=== PATIENT | male | born 1985 | race Caucasian/White ===

== ENCOUNTER 2022-10-10 13:06 | Emergency (ER) | payer BC, SELFPAY ==
[2022-10-10] VITALS (8 sets, daily range): BP systolic 134–187; BP diastolic 75–95; PULSE 85–105; RESP 12–16; TEMP 36.7; O2SAT 94–98; BMI 39.9
--- NOTE | 2022-10-10 13:26 | CRLHL7_ITS ---
For Patients: As a result of the Cures Act, medical imaging exams and procedure reports are released immediately into your electronic medical record. You may view this report before your referring provider. If you have questions, please contact your health care provider. INDICATION: Chest pain. TECHNIQUE: Chest 2 views. COMPARISON: None. FINDINGS: Cardiovascular and mediastinum: Cardiomediastinal silhouette is within normal limits Lungs and pleural spaces: Lungs are clear. No sign of pleural effusion. No pneumothorax. Bones and soft tissues: No significant findings. IMPRESSION: No acute or significant findings. Dictated by Ross Anthony MD @ 10/10/2022 2:53:07 PM (Electronically Signed)
[2022-10-10 13:48] LABS: Basophils Absolute Auto 0.06 K/uL (0.00-0.30); Basophils Percent Auto 1.1 % (0.0-3.0); Eosinophils Absolute Auto 0.13 K/uL (0.00-0.50); Eosinophils Percent Auto 2.3 % (0.0-7.0); Hematocrit 43.8 % (37.0-53.0); Hemoglobin* 14.8 gm/dL (13.5-17.5); Immature Granulocytes Abs Auto 0.01 K/uL (0.00-0.30); Immature Granulocytes Pct Auto 0.2 %; Lymphocytes Absolute Auto 1.36 K/uL (0.90-2.90); Mean Corpuscular HGB Conc 34 gm/dL (32-36); Mean Corpuscular Hemoglobin 30 pg (26-34); Mean Corpuscular Volume 90 fL (80-100); Monocytes Percent Auto 9.5 % (0.0-11.0); Neutrophils Absolute Auto 3.57 K/uL (1.7-7.0); Neutrophils Percent Auto 62.9 % (42.0-72.0); Platelet Count* 225 K/uL (140-440); RDW Coefficient of Variation % 12.4 % (11.5-15.5); Red Blood Count 4.87 m/uL (4.30-5.90); White Blood Count* 5.67 K/uL (4.50-11.00)
[2022-10-10] MEDS: KETOROLAC 15 MG/ML inj IVP (13:57)
[2022-10-10 14:00] LABS: Chloride* 97 mmol/L (96-114); Sodium* 131 mmol/L (135-149)
[2022-10-10 14:01] LABS: Potassium* 3.6 mmol/L (3.6-5.1)
--- NOTE | 2022-10-10 14:02 | ED_ITS ---
HPI - Chest Pain General Time Seen by Provider: 13:50 Date Seen: 10/10/22 Chief Complaint: Chest Pain Stated Complaint: chest pain Time Seen by Provider: 10/10/22 13:07 Source: patient Mode of arrival: ambulatory Limitations: no limitations History of Present Illness HPI narrative: Patient is a 37-year-old male with a history of coarctation of the aorta surgery treated while he was a child presents to emergency department for left upper chest pain. He states the pain started abruptly this morning it has been consistent ever since. States he had similar pain 2 days ago that resolved on its own. He was concerned due to his history since the pain came back. Does admit to recent heavy lifting 2 days ago prior to the pain initially starting. Denies fevers, chills, headache, lightheadedness, shortness of breath, abdominal pain, diarrhea, constipation, weakness, numbness. Patient denies having pain like this prior to the past 2 episodes of the past couple days. Pain does not radiate anywhere. States is sharp in nature. He also has a history of hypertension and states he took his hypertensive medication shortly prior to arrival. Patient also states he took 2 ibuprofen with minimal improvement in his symptoms. Related Data Home Medications Medication Instructions Recorded Confirmed amlodipine 10 mg tablet 10 mg PO DAILY 10/10/22 10/10/22 hydrochlorothiazide 12.5 mg capsule 12.5 mg PO DAILY 10/10/22 10/10/22 lisinopril 40 mg tablet 40 mg PO DAILY 10/10/22 10/10/22 loratadine 10 mg tablet (Claritin) 10 mg PO DAILY 10/10/22 10/10/22 Allergies Allergy/AdvReac Type Severity Reaction Status Date / Time No Known Drug Allergies Allergy Verified 10/10/22 13:10 Review of Systems Status of ROS Reports: 10 or more systems reviewed and unremarkable except as noted in History and below PFSH PFS Social History Smoking Status: Former smoker How often do you have a drink containing alcohol: 4 or more times a week AUDIT-C Alcohol total score: 4 Non-prescribed substance use: former substance user Exam Narrative Exam Narrative: Const: Well-nourished, Well-developed, in mild distress Eyes: PERRL, no conjunctival injection, and symmetrical lids ENMT: Atraumatic external nose and ears. Moist mucous membranes. Neck: Symmetric, trachea midline, No thyromegaly. CVS: RRR, No murmurs or gallops. Peripheral pulses 2+ and equal in all extremities RESP: Unlabored respiratory effort. Clear to auscultation bilaterally. GI: Nontender/Nondistended, No rebound or guarding. MSK:Extremities w/o deformity, Normal Active ROM, tenderness to palpation noted to the left upper chest where his pain is Skin: Warm, Dry. No rashes or lesions. Neuro: Normal Muscle tone, No focal neurological deficits. Psych: Awake, Alert, & Oriented x3. Appropriate mood and affect. Const Vital Signs, click to edit/add: Vital Signs - 24 hr 10/10/22 13:09 10/10/22 13:32 10/10/22 14:02 Temperature 98.1 F Pulse Rate 99 99 Pulse Rate [Pulse Oximeter] 105 H Respiratory Rate 16 16 12 Blood Pressure 173/84 H 162/95 H Blood Pressure [Left Upper Arm] 187/95 H Pulse Oximetry 98 96 97 Oxygen Delivery Method Room Air 10/10/22 14:32 10/10/22 15:01 10/10/22 15:32 Temperature Pulse Rate 97 86 96 Pulse Rate [Pulse Oximeter] Respiratory Rate 12 12 12 Blood Pressure 152/81 H 160/77 H 155/90 H Blood Pressure [Left Upper Arm] Pulse Oximetry 95 94 96 Oxygen Delivery Method 10/10/22 16:01 10/10/22 16:31 Temperature Pulse Rate 87 85 Pulse Rate [Pulse Oximeter] Respiratory Rate 12 12 Blood Pressure 134/75 138/84 Blood Pressure [Left Upper Arm] Pulse Oximetry 95 96 Oxygen Delivery Method Room Air Course Vital Signs Vital signs: Initial Vital Signs Temperature 98.1 F 10/10/22 13:09 Temperature Source Temporal Artery Scan 10/10/22 13:09 Pulse Rate 105 H 10/10/22 13:09 Pulse Rhythm Regular 10/10/22 13:09 Respiratory Rate 16 10/10/22 13:09 Blood Pressure 187/95 H 10/10/22 13:09 Blood Pressure Mean 125 H 10/10/22 13:09 Blood Pressure Position Supine 10/10/22 13:09 Pulse Oximetry 98 10/10/22 13:09 Oxygen Delivery Method Room Air 10/10/22 13:09 Vital Signs Temperature 98.1 F 10/10/22 13:09 Pulse Rate 105 H 10/10/22 13:09 Respiratory Rate 16 10/10/22 13:09 Blood Pressure 187/95 H 10/10/22 13:09 Pulse Oximetry 98 10/10/22 13:09 Oxygen Delivery Method Room Air 10/10/22 13:09 Temperature 98.1 F 10/10/22 13:09 Pulse Rate 85 10/10/22 16:31 Respiratory Rate 12 10/10/22 16:31 Blood Pressure 138/84 10/10/22 16:31 Pulse Oximetry 96 10/10/22 16:31 Oxygen Delivery Method Room Air 10/10/22 16:31 MDM - Chest Pain MDM Narrative Medical decision making narrative: Patient is a 37-year-old male presented emergency department for chest pain. Pain 1st occurred 2 days ago when when sounding came back again today. It is sharp in nature appears his left upper chest region. Denies ever having pain like this before. Does have history of hypertension and coarctation of the aorta which was surgically repaired as a child. His chest pain is reproducible on palpation with his history of cardiac workup will be ordered. Is includes troponin, CBC, BMP, EKG, chest x-ray. Lab work returns showing no concerning abnormalities. Sodium was slightly low at 131 but this is nothing he needs to be admitted for. Initial troponin was within normal limits. EKG showed him slightly tachycardic at 01:06 but otherwise no concerning abnormalities. Chest x-ray shows no concerning abnormalities. I see no signs of pneumothorax and not believe it is a pulmonary embolism. Most likely it is costochondritis considering the tenderness to palpation. Patient will be discharged home with Tylenol ibuprofen. He is agreeable to this plan. Differential Diagnosis Differential diagnosis: Likely pneumothorax, stable angina, unstable angina pectoris, st elevation myocardial infarction and costochondritis Lab Data Labs: Lab Results 10/10/22 10/10/22 Range/Units 13:36 15:53 WBC 5.67 (4.50-11.00) K/uL RBC 4.87 (4.30-5.90) m/uL Hgb 14.8 (13.5-17.5) gm/dL Hct 43.8 (37.0-53.0) % MCV 90 (80-100) fL MCH 30 (26-34) pg MCHC 34 (32-36) gm/dL RDW Coeff of Fortunato 12.4 (11.5-15.5) % Plt Count 225 (140-440) K/uL Neut % (Auto) 62.9 (42.0-72.0) % Lymph % (Auto) 24.0 (20-44) % Villalba % (Auto) 9.5 (0.0-11.0) % Eos % (Auto) 2.3 (0.0-7.0) % Baso % (Auto) 1.1 (0.0-3.0) % Neut # (Auto) 3.57 (1.7-7.0) K/uL Lymph # (Auto) 1.36 (0.90-2.90) K/uL Villalba # (Auto) 0.50 (0.00-0.90) K/UL Eos # (Auto) 0.13 (0.00-0.50) K/uL Baso # (Auto) 0.06 (0.00-0.30) K/uL Abs Immat Gran (auto) 0.01 (0.00-0.30) K/uL Imm/Tot Granulo (auto) 0.2 % Sodium 131 L (135-149) mmol/L Potassium 3.6 (3.6-5.1) mmol/L Chloride 97 (96-114) mmol/L Carbon Dioxide 27 (20-32) mmol/L BUN 13 (5-24) mg/dL Creatinine 0.7 (0.5-1.5) mg/dL Estimated Creat Clear 145.89 Estimated GFR 122 ml/min Glucose 153 H (60-115) mg/dL Calcium 8.5 (8.4-10.6) mg/dL Troponin I < 0.01 L < 0.01 L (0.01-0.04) ng/mL Discharge Plan Discharge Clinical Impression: Costalchondritis Patient Disposition: Home, Self-Care Condition: Stable Instructions: Costochondritis (ED) Additional Instructions: Your lab work looks well. Follow-up primary care provider. Return for new or worsening symptoms. The most likely of costochondritis which is typically from inflammation. NSAIDs such as ibuprofen will help with this. Her sodium level was slightly low today. The level it is now is not in overt concerned but if you see your primary care provider I would mention it to them. Prescriptions: No Action loratadine [Claritin] 10 mg tablet 10 mg PO DAILY amlodipine 10 mg tablet 10 mg PO DAILY hydrochlorothiazide 12.5 mg capsule 12.5 mg PO DAILY lisinopril 40 mg tablet 40 mg PO DAILY Follow Up/Referrals: Provider,Not a Local [Primary Care Provider] - Stand Alone Forms: [facility] [facility] Info Instructions
[2022-10-10 14:03] LABS: Creatinine* 0.7 mg/dL (0.5-1.5); Est. Creatinine Clearance* 145.89; Estimated Glomerular Filt Rate 122 ml/min
[2022-10-10 14:04] LABS: Blood Urea Nitrogen* 13 mg/dL (5-24); Calcium* 8.5 mg/dL (8.4-10.6); Carbon Dioxide* 27 mmol/L (20-32); Glucose* 153 mg/dL (60-115)
[2022-10-10 14:06] LABS: Slide Review Reflex No
[2022-10-10 14:18] LABS: Troponin I* < 0.01 ng/mL (0.01-0.04)
[2022-10-10 16:55] LABS: Troponin I* < 0.01 ng/mL (0.01-0.04)
== END 2022-10-10 17:11 | disposition home or self-care (01) ==
PROVIDERS: Emergency Provider Student in an Organized Health Care Education/Training Program
DX: M94.0 Chondrocostal junction syndrome [Tietze] (principal)
CPT/HCPCS: 36415; 71046; 80048; 84484; 85025; 93005; 96374; 99283; 99284; 99285; J1885

== ENCOUNTER 2023-04-10 21:23 | Emergency (ER) | payer BC, SELFPAY ==
[2023-04-10 21:40] VITALS: BP 143/91; PULSE 97; RESP 18; TEMP 37.1; O2SAT 97; BMI 37.4
--- NOTE | 2023-04-10 21:59 | ED_ITS ---
HPI - General Adult General Chief complaint: Chest Pain Stated complaint: Chest pain, dizziness, tingly feet Time Seen by Provider: 04/10/23 21:33 Source: patient and family Mode of arrival: ambulatory Limitations: no limitations History of Present Illness HPI narrative: 37-year-old male presenting today with chest pain. Pain is located in left side of the chest in comes and goes. Putting his arm over his head makes it better, walking makes it better. Nothing specific seems to make it worse. He does not feel short of breath. He denies fevers or chills. He denies any recent traveling. He states that the pain can radiate down his arm as well. Patient tells me that this pain has been present since the last time he was worked up for chest pain in our ER which was in October of last year. He states that the pain never went away and it keeps coming back. He tells me that he had a friend, who was over 20 years older than he is, recently have a heart attack and he feels like he might be having a heart attack because his symptoms match what his friend described. Patient denies any new medications, denies any recent travel. Denies any recent surgeries. Patient was a smoker, quit about 4 years ago. He does drink a significant amount of alcohol on a daily basis. He does have hypertension and is taking his medications as prescribed. Family history significant for a maternal grandfather who had an NM when he was 63. Related Data Home Medications Medication Instructions Recorded Confirmed amlodipine 10 mg tablet 10 mg PO DAILY 10/10/22 10/10/22 hydrochlorothiazide 12.5 mg capsule 12.5 mg PO DAILY 10/10/22 10/10/22 lisinopril 40 mg tablet 40 mg PO DAILY 10/10/22 10/10/22 loratadine 10 mg tablet (Claritin) 10 mg PO DAILY 10/10/22 10/10/22 Allergies Allergy/AdvReac Type Severity Reaction Status Date / Time No Known Drug Allergies Allergy Verified 10/10/22 13:10 Review of Systems Status of ROS: Reports: 10 or more systems reviewed and unremarkable except as noted in History and below [facility] Social History Smoking Status: Former smoker How often do you have a drink containing alcohol: 4 or more times a week AUDIT-C Alcohol total score: 4 Non-prescribed substance use: former substance user Exam Narrative: Exam Narrative: Overweight, well-developed patient in no acute distress, obviously acutely intoxicated. Smells of alcohol. Answers questions appropriately, is cooperative. Mood and affect are appropriate. Thoughts are goal oriented and rational. Patient speaks in full sentences without needing to catch his breath. HEENT: Normocephalic atraumatic. Pupils are equally round reactive to light. Extraocular muscles are intact. Conjunctivae are moist without any icterus noted. Moist mucous membranes. Cardiovascular: Heart is regular rate and rhythm S1 and S2 are present without any murmurs. Lungs: Clear to auscultation bilaterally no wheezes rhonchi or rales are appreciated. Patient takes deep breaths without any discomfort. I can reproduce his chest pain with firm palpation of the left chest wall just medial to the axillary region. There are no overlying skin changes. Abdomen: Soft, protuberant, nontender and nondistended. Normal bowel sounds. Extremities: Bilateral lower extremities are without edema. Skin: Well perfused without any obvious rashes. Const: Vital Signs, click to edit/add: Vital Signs - 24 hr 04/10/23 21:40 Temperature 98.8 F Pulse Rate [Pulse Oximeter] 97 Respiratory Rate 18 Blood Pressure [Ri ght Upper Arm] 143/91 H Pulse Oximetry 97 Oxygen Delivery Me thod Room Air Course Course ED Course: EKG, read by me, shows normal sinus rhythm with a pulse of 93. Troponin is 0. Given that the patient has had this pain now for over 6 months, pain is better with his arm over his head and pain radiates also down his left arm, I am concerned that he has a pinched cervical nerve. We discussed NSAIDs, heat, physical therapy. Patient was status care with a primary care provider. Vital Signs Vital signs: Initial Vital Signs Temperature 98.8 F 04/10/23 21:40 Temperature Source Temporal Artery Scan 04/10/23 21:40 Pulse Rate 97 04/10/23 21:40 Respiratory Rate 18 04/10/23 21:40 Blood Pressure 143/91 H 04/10/23 21:40 Blood Pressure Mean 108 H 04/10/23 21:40 Blood Pressure Position Sitting 04/10/23 21:40 Pulse Oximetry 97 04/10/23 21:40 Oxygen Delivery Method Room Air 04/10/23 21:40 Vital Signs Temperature 98.8 F 04/10/23 21:40 Pulse Rate 97 04/10/23 21:40 Respiratory Rate 18 04/10/23 21:40 Blood Pressure 143/91 H 04/10/23 21:40 Pulse Oximetry 97 04/10/23 21:40 Oxygen Delivery Method Room Air 04/10/23 21:40 Temperature 98.8 F 04/10/23 21:40 Pulse Rate 97 04/10/23 21:40 Respiratory Rate 18 04/10/23 21:40 Blood Pressure 143/91 H 04/10/23 21:40 Pulse Oximetry 97 04/10/23 21:40 Oxygen Delivery Method Room Air 04/10/23 21:40 Medications Administered Medications: Discontinued Medications Generic Name Dose Route Start Last Admin Trade Name Dorene PRN Reason Stop Dose Admin Ketorolac Tromethamine 60 mg 04/10/23 21:57 04/10/23 22:15 Ketorolac 30 Mg/Ml Inj IM 04/10/23 21:58 60 mg ONCE ONE Administration Medical Decision Making [facility] Narrative Medical decision making narrative: 37-year-old male with atypical chest pain arm pain. Differential diagnoses includes shoulder impingement, impingement of cervical nerves. I do not believe that the patient is having a heart attack at this time. I recommend he establish care with a primary care provider, use NSAIDs, heat and physical therapy. Also recommend he decrease his alcohol use. Medical Records Medical records reviewed: Yes I reviewed the patient's medical records Lab Data Lab results reviewed: Yes I reviewed the patient's lab results Labs: Lab Results 04/10/23 Range/Units 21:57 POC Troponin I 0.00 L (0.01-0.04) ng/ml ECG Data Attestation: I personally reviewed and interpreted this ECG as follows: Discharge Plan Discharge Clinical Impression: Atypical chest pain Patient Disposition: Home, Self-Care Condition: Stable Additional Instructions: Your pain today is likely caused by either a pinched nerve in your neck or an irritation of the shoulder joint called shoulder impingement. At this time I recommend you take ibuprofen 600 mg 3 times a day with food. This can irritate your stomach and this will be made worse if you continue to drink alcohol. You should decrease the amount of alcohol you were drinking. You should establish care with a primary care provider and start physical therapy for your pain. Can also use a heating pad to sore areas, do not apply heat directly to skin. You are not having a heart attack. Prescriptions: No Action loratadine [Claritin] 10 mg tablet 10 mg PO DAILY amlodipine 10 mg tablet 10 mg PO DAILY hydrochlorothiazide 12.5 mg capsule 12.5 mg PO DAILY lisinopril 40 mg tablet 40 mg PO DAILY Follow Up/Referrals: Provider,Not a Local [Primary Care Provider] - Stand Alone Forms: [employer] Info Instructions
[2023-04-10 22:09] VITALS: PULSE 101; O2SAT 98
[2023-04-10 22:15] VITALS: PULSE 98; O2SAT 97
[2023-04-10] MEDS: KETOROLAC 30 MG/ML inj 60 MG IM (22:15)
== END 2023-04-10 22:38 | disposition home or self-care (01) ==
PROVIDERS: Emergency Provider Family Medicine
DX: R07.89 Other chest pain (principal)
CPT/HCPCS: 84484; 93005; 94761; 96372; 99284; J1885